=== PATIENT | female | born 1940 | race Caucasian/White ===

== ENCOUNTER 2017-03-09 17:24 | Emergency (ER) | payer MEDICARE ==
[~2017-03-09 17:24] MED LIST: Iopamidol 370 76% 125 ML VIAL FS ONE
[2017-03-09 18:07] LABS: #Basophils 0.1 thou/uL (0.0-0.2); #Lymphocytes 1.9 thou/uL (1.20-3.40); #Neutrophils 7.3 thou/uL (1.40-6.50); %Eosinophils 0.1 % (0.0-10.0); %Lymphocytes 18.5 % (21.0-51.0); %Monocytes 9.7 % (0.0-10.0); %Neutrophils 70.6 % (42.0-75.0); Hemoglobin 13.8 g/dL (12.0-16.0); Mean Corpuscular HGB CONC 32.3 g/dL (32.0-36.0); Mean Corpuscular Hemoglobin 32.6 pg (27.0-31.0); Mean Corpuscular Volume 100.8 fl (81.0-99.0); Mean Platelet Volume 9.6 fL (7.4-10.4); Platelet Count 251 thou/uL (130-400); RBC Distribution Width 13.6 % (11.5-14.5); Red Blood Cell (RBC) Count 4.23 mill/uL (4.20-5.40); White Blood Cell (WBC) Count 10.3 thou/uL (4.8-10.8)
--- NOTE | 2017-03-09 18:10 | RAD ---
PORTABLE CHEST 03/09/17 PROVIDED CLINICAL HISTORY: Cough. FINDINGS: The cardiac silhouette is within normal limits for portable technique. Vascular calcifications noted involving the aortic arch. The lungs are hypoinflated. Prominence of the pulmonary vascular markings may be on the basis of pulmonary vascular congestion or lung hypoinflation. There is no focal consoli dation, pleural fluid or pneumothorax apparent. IMPRESSION: Hypoinflated exam with prominence of the pulmonary vasculature possibly reflecting congestive failure . POS: [facility]
[2017-03-09 18:21] LABS: ALT (SGPT) 109 U/L (8-55); AST (SGOT) 66 U/L (5-34); Albumin 3.5 g/dL (3.4-4.8); Alkaline Phosphatase 173 U/L (40-150); Anion Gap 18 mmol/L (10-20); BUN (Urea Nitrogen) 17 mg/dL (9.8-20.1); Bilirubin, Total 0.5 mg/dL (0.2-1.2); Calc. Creatinine Clearance 0 mL/min (70-130); Carbon Dioxide 29 mmol/L (23-31); Chloride 96 mmol/L (98-107); Estimated GFR-MDRD 72; Globulin 3.8 g/dL (2.4-3.5); Glucose 138 mg/dL (83-110); Potassium 4.1 mmol/L (3.5-5.1); Protein, Total 7.3 g/dL (6.0-8.3); Sodium 139 mmol/L (136-145)
[2017-03-09 18:32] LABS: CKMB 0.9 ng/mL (0-6.6); Troponin I 0.158 ng/mL (< 0.028)
[2017-03-09] MEDS ORDERED: Furosemide 20 MG/2 ML VIAL ONE (18:43)
[2017-03-09] MEDS ORDERED: diphenhydrAMINE 50 MG/ML VIAL ONE ×2 (20:23→20:27)
[2017-03-09] MEDS ORDERED: predniSONE 20 MG TAB ONE (20:23)
[2017-03-09] MEDS ORDERED: predniSONE 10 MG TAB ONE (20:23)
--- NOTE | 2017-03-09 21:28 | CT ---
CT ANGIOGRAM WITH IV CONTRAST AND 3D MIP RECONSTRUCTIONS: 03/09/17 PROVIDED CLINICAL HISTORY: Shortness of breath. FINDINGS: There is no evidence for central or segmental pulmonary embolus. Heart, pericardium and great vessels appear unremarkable with the exception of vascular calcification including coronary calcium. Lung pa renchyma is suboptimally evaluated due to patient respiratory motion but appears grossly clear. The a irway appears patent and of normal caliber. No pleural fluid or pneumothorax is evident. No evidence for thoracic lymph node enlargement. The visualized portions of the upper abdomen appear unremarkable. The osseous structures demonstrate no concerning osteoblastic or osteolytic lesions. IMPRESSION: No evidence for central or segmental pulmonary embolus. POS: [facility]
== END 2017-03-09 21:45 | disposition short-term general hospital (02) ==
LOC: MADERS 17:24
DX: E87.70 Fluid overload, unspecified (principal); R09.02 Hypoxemia; M19.90 Unspecified osteoarthritis, unspecified site; E78.5 Hyperlipidemia, unspecified; I10 Essential (primary) hypertension; Z79.82 Long term (current) use of aspirin; Z79.899 Other long term (current) drug therapy
CPT/HCPCS: 36415; 71010; 71275; 80053; 82553; 83880; 84484; 85025; 85379; 94660; 96374; 96375; J1200; J1940; J7506; J7512

== ENCOUNTER 2023-09-01 18:03 | Emergency (ER) | payer MEDICARE, OTHER ==
[2023-09-01 19:03] LABS: #Basophils 0.1 thou/uL (0.0-0.2); #Eosinphils 0.1 thou/uL (0.0-0.7); #Lymphocytes 2.3 thou/uL (1.20-3.40); #Monocytes 0.6 thou/uL (0.11-0.59); #Neutrophils 7.1 thou/uL (1.40-6.50); %Basophils 0.8 % (0.0-1.0); %Lymphocytes 22.5 % (21.0-51.0); %Monocytes 6.1 % (0.0-10.0); %Neutrophils 69.6 % (42.0-75.0); Hematocrit 45.5 % (36.0-47.0); Hemoglobin 14.3 g/dL (12.0-16.0); Mean Corpuscular HGB CONC 31.4 g/dL (32.0-36.0); Mean Corpuscular Hemoglobin 31.1 pg (27.0-31.0); Mean Corpuscular Volume 99.1 fl (78.0-98.0); Mean Platelet Volume 9.2 fL (7.4-10.4); Platelet Count 234 10x3/uL (130-400); RBC Distribution Width 14.3 % (11.5-14.5); Red Blood Cell (RBC) Count 4.59 mill/uL (4.20-5.40); White Blood Cell (WBC) Count 10.2 10x3/uL (4.8-10.8)
[2023-09-01 19:06] LABS: Troponin I 0.069 ng/mL (< 0.028)
[2023-09-01 19:22] LABS: Anion Gap 17 mmol/L (10-20); BUN (Urea Nitrogen) 20 mg/dL (9.8-20.1); Bilirubin, Total 1.1 mg/dL (0.2-1.2); Calc. Creatinine Clearance 0 mL/min (70-130); Calcium 9.6 mg/dL (7.8-10.44); Carbon Dioxide 27 mmol/L (23-31); Chloride 103 mmol/L (98-107); Estimated GFR 47; Glucose 92 mg/dL (83-110); Potassium 4.2 mmol/L (3.5-5.1); Sodium 143 mmol/L (136-145)
[2023-09-01 19:23] LABS: ALT (SGPT) 38 U/L (8-55); AST (SGOT) 29 U/L (5-34); Albumin 3.8 g/dL (3.4-4.8); Alkaline Phosphatase 75 U/L (40-110); Globulin 2.8 g/dL (2.4-3.5); Protein, Total 6.6 g/dL (5.8-8.1)
[2023-09-01] MEDS ORDERED: Sodium Chloride 0.9% 1,000 ML ONE (19:38)
[2023-09-01 20:17] LABS: Bilirubin Moderate (Negative); Blood, Urine Negative (Negative); Glucose, Urine (Dipstick) Negative (Negative); Ketone, Urine 15 mg/dL (Negative); Leukocyte Negative (Negative); Nitrite Negative (Negative); Protein, Urine (Dipstick) 100 mg/dL (Neg-Trace); Urobilinogen 0.2 mg/dL (Less than 2); pH, Urine 5.5 (5.0-9.0)
[2023-09-01 20:20] LABS: CAUTI Indications for Culture < 2yrs of age; Clarity Cloudy (Clear); RBC/HPF None Seen HPF (0-3); Specific Gravity, Urine 1.028 (1.002-1.036)
[2023-09-01 20:21] LABS: Calcium Oxalate Crystals 3+ HPF (None Seen); Mucous/LPF 3+ LPF (<2+); Urine Culture Reflex Yes Yes
[2023-09-01] MEDS ORDERED: Aspirin 325 MG TAB ONE (21:06)
== END 2023-09-01 22:53 | disposition short-term general hospital (02) ==
LOC: MADERS 18:03
DX: E86.0 Dehydration (principal); N17.9 Acute kidney failure, unspecified; I49.3 Ventricular premature depolarization; I10 Essential (primary) hypertension; Z79.899 Other long term (current) drug therapy; Z79.82 Long term (current) use of aspirin; Z87.891 Personal history of nicotine dependence
CPT/HCPCS: 70450; 80053; 81001; 84484; 85025; 87086; 93005; 94760; 96360; 99285; J7050